=== PATIENT | female | born 1985 | race Caucasian/White ===

== ENCOUNTER 2020-11-18 15:10 | Emergency (ER) | payer OTHER ==
[~2020-11-18 15:10] MED LIST: BENADRYL A12.5 MG/5 PO; GARLIC1 EAC1 PO; MACROBID100 MG PO; OS-CAL500 MG PO; ZOLOFT100 MG PO
== END 2020-11-18 17:40 | disposition home or self-care (01) ==
LOC: FER 15:10
DX: S13.4XXA Sprain of ligaments of cervical spine, initial encounter (principal); S43.401A Unspecified sprain of right shoulder joint, initial encounter; V49.50XA Passenger injured in collision with unspecified motor vehicles in traffic accident, initial encounter; Y92.410 Unspecified street and highway as the place of occurrence of the external cause
CPT/HCPCS: 72125; 73030